=== PATIENT | male | born 2000 | race Caucasian/White ===

== ENCOUNTER → 2023-09-15 | Outpatient (CLI) | payer OTHER ==
[2023-09-15 14:09] LABS: BASO # 0.1 10^3/uL (0.0-0.2); BASO % 0.6 % (0.0-1.0); EOS # 0.2 10^3/uL (0.0-0.5); EOS % 1.8 % (0.0-3.0); HEMATOCRIT 36.8 % (42.0-52.0); HEMOGLOBIN 11.4 g/dl (13.5-17.5); LYMPH % 18.9 % (24.0-44.0); MEAN CORPUSCULAR HEMOGLOBIN 26.1 pg (27.0-33.0); MEAN CORPUSCULAR VOLUME 84.2 fl (80.0-96.0); MONO # 0.9 10^3/uL (0.0-0.8); MONO % 8.3 % (2.0-8.0); NEUTROPHILS # 7.6 10^3/uL (1.5-8.5); NEUTROPHILS % 70.1 % (36.0-66.0); PLATELET COUNT, AUTOMATED 381 10^3/uL (150-450); RED BLOOD COUNT 4.37 10^6/uL (4.30-6.10); WHITE BLOOD COUNT 10.8 10^3/uL (4.0-10.0)
[2023-09-15 14:20] LABS: ERYTHROCYTE SEDIMENTATION RATE 24 mm/hr (0-15)
[2023-09-15 14:33] LABS: C REACTIVE PROTEIN QUANTITATIV < 0.40 MG/DL (<1.0)
[2023-09-15 14:34] LABS: IMMUNOGLOBULIN A 192.8 MG/DL (40-350)
[2023-09-15 14:35] LABS: ALKALINE PHOSPHATASE 86 U/L (46-116); ALT/SGPT 16 U/L (7.0-40); AST/SGOT 15 U/L (<34); BILIRUBIN,TOTAL 0.2 MG/DL (0.3-1.2); BLOOD UREA NITROGEN 21 MG/DL (9-23); CALCIUM LEVEL 9.2 MG/DL (8.5-10.1); CARBON DIOXIDE LEVEL 26 MMOL/L (20-31); CHLORIDE LEVEL 104 MMOL/L (98-107); CREATININE FOR GFR 1.24 MG/DL (0.70-1.30); GLUCOSE, FASTING 89 MG/DL (60-100); POTASSIUM SERUM 4.3 MMOL/L (3.5-5.1); SODIUM LEVEL 138 MMOL/L (136-145); TOTAL PROTEIN 7.2 G/DL (5.7-8.2)
[2023-09-15 14:36] LABS: FREE T4 1.12 NG/DL (0.83-1.43); THYROID STIMULATING HORMONE 3.122 uIU/ML (0.48-4.17)
== END ==
LOC: M LAB 13:18
DX: K62.5 Hemorrhage of anus and rectum (principal); R19.7 Diarrhea, unspecified

== ENCOUNTER 2024-06-09 19:02 | Emergency (ER) | payer OTHER ==
[~2024-06-09] VITALS: Ht 162.6 cm; Wt 68.0 kg
[2024-06-09 19:36] LABS: HEMATOCRIT 29.8 % (42.0-52.0); HEMOGLOBIN 8.6 g/dl (13.5-17.5); MEAN CORPUSCULAR HEMOGLOBIN 22.5 pg (27.0-33.0); MEAN CORPUSCULAR HGB CONC 28.9 g/dl (32.0-36.5); PLATELET COUNT, AUTOMATED 467 10^3/uL (150-450); RED BLOOD COUNT 3.82 10^6/uL (4.30-6.10); WHITE BLOOD COUNT 11.1 10^3/uL (4.0-10.0)
[2024-06-09] MEDS: PANTOPRAZOLE 40MG VIAL IV ONE (19:58)
[2024-06-09] MEDS: NS 1,000 ML IV STA (19:59)
[2024-06-09 20:02] LABS: ETHYL ALCOHOL (ETHANOL) < 0.003 % (0.000-0.010); LIPASE 20 U/L (12-53)
[2024-06-09 20:04] LABS: ALBUMIN 3.3 G/DL (3.2-5.2); ALKALINE PHOSPHATASE 77 U/L (46-116); ALT/SGPT 11 U/L (7.0-40); AST/SGOT < 8 U/L (<34); BILIRUBIN,DIRECT 0.1 MG/DL (<0.4); BILIRUBIN,TOTAL 0.4 MG/DL (0.3-1.2); BLOOD UREA NITROGEN 12 MG/DL (9-23); CARBON DIOXIDE LEVEL 27 MMOL/L (20-31); CHLORIDE LEVEL 104 MMOL/L (98-107); CREATININE FOR GFR 1.44 MG/DL (0.70-1.30); GLOMERULAR FILTRATION RATE > 60.0 (>60); GLUCOSE, FASTING 99 MG/DL (60-100); SODIUM LEVEL 136 MMOL/L (136-145); TOTAL PROTEIN 6.4 G/DL (5.7-8.2)
[2024-06-09] MEDS ORDERED: ISOVUE-370 76% 100ML VIAL As Ordered ONE (20:08)
[2024-06-09 20:15] LABS: INR 1.26; PROTHROMBIN TIME 15.4 SECONDS (12.5-14.5)
[2024-06-09 20:21] LABS: BASOPHILS 3 % (0-1); EOSINOPHILS 1 % (0-3); LYMPHOCYTES 16 % (16-44); MONOCYTES 20 % (0-5); NEUTROPHILS 46 % (28-66)
[2024-06-09 20:22] LABS: PLATELET ESTIMATE INCREASED (NORMAL); POLYCHROMASIA 1+
[2024-06-09 20:23] LABS: HYPOCHROMASIA 2+; MICROCYTOSIS 1+
[2024-06-09 20:24] LABS: TEAR DROP CELLS 2+
[2024-06-09] MEDS: methylPREDNISolone 125MG 2ML VIAL IV ONE (21:46)
[2024-06-09] MEDS: ONDANSETRON 4MG 2ML VIAL IV ONE (22:02)
[2024-06-09] MEDS: MORPHINE 4 MG/ML 1ML VIAL IV ONE (22:03)
[2024-06-09 23:17] VITALS: O2SAT 98
[2024-06-09 23:30] VITALS: BP 106/52; TEMP 100.3
[2024-06-09] MEDS: ACETAMINOPHEN 500 MG TAB PO ONE (23:44)
== END 2024-06-09 23:55 | disposition short-term general hospital (02) ==
LOC: M ED 19:02
DX: K51.90 Ulcerative colitis, unspecified, without complications (principal); F17.210 Nicotine dependence, cigarettes, uncomplicated; Z88.1 Allergy status to other antibiotic agents
CPT/HCPCS: 74174; 80048; 80076; 82077; 83690; 85025; 85610; 96361; 96374; 96375; 99285; J2405; J2470; J2919; Q9967

== ENCOUNTER 2024-07-29 10:11 | Outpatient (CLI) | payer OTHER ==
[~2024-07-29] VITALS: Ht 162.6 cm; Wt 65.9 kg
[2024-07-29] VITALS (7 sets, daily range): BP systolic 107–121; BP diastolic 53–59; O2SAT 98–100
[~2024-07-29 10:11] MED LIST: NS 1,000 ML IV SCH
[2024-07-29] MEDS: inFLIXimab INJECTION 300 MG in NS 220 ML IV ONE (10:55)
== END 2024-07-29 13:20 ==
LOC: M INFU 10:11
PROVIDERS: ATTEND Student in an Organized Health Care Education/Training Program
DX: K51.911 Ulcerative colitis, unspecified with rectal bleeding (principal); Z88.1 Allergy status to other antibiotic agents
CPT/HCPCS: 96413; 96415; J1745

== ENCOUNTER 2024-08-12 10:30 | Outpatient (CLI) | payer OTHER ==
[~2024-08-12] VITALS: Ht 162.6 cm; Wt 65.9 kg
[2024-08-12 11:15] VITALS: BP 117/60; O2SAT 100
[2024-08-12] MEDS: inFLIXimab INJECTION 300 MG in NS 220 ML IV ONE (11:16)
[2024-08-12 11:45] VITALS: BP 129/58; O2SAT 97
[2024-08-12 12:15] VITALS: BP 120/56; O2SAT 100
[2024-08-12 13:10] VITALS: BP 129/59; O2SAT 100
== END 2024-08-12 13:20 ==
LOC: M INFU 10:30
PROVIDERS: ATTEND Student in an Organized Health Care Education/Training Program
DX: K51.911 Ulcerative colitis, unspecified with rectal bleeding (principal); Z88.1 Allergy status to other antibiotic agents
CPT/HCPCS: 96413; 96415; J1745

== ENCOUNTER 2024-09-09 10:25 | Outpatient (CLI) | payer OTHER ==
[~2024-09-09] VITALS: Ht 162.6 cm; Wt 68.0 kg
[2024-09-09 10:30] VITALS: BP 135/63; O2SAT 100
[2024-09-09] MEDS ORDERED: NS 1,000 ML IV SCH (10:30)
[2024-09-09] MEDS: inFLIXimab INJECTION 300 MG in NS 220 ML IV ONE (11:12)
[2024-09-09 11:30] VITALS: BP 122/56; O2SAT 100
[2024-09-09 12:00] VITALS: BP 120/58; O2SAT 100
[2024-09-09 13:20] VITALS: BP 130/58; O2SAT 100
== END 2024-09-09 12:50 ==
LOC: M INFU 10:25
PROVIDERS: ATTEND Student in an Organized Health Care Education/Training Program
DX: K51.911 Ulcerative colitis, unspecified with rectal bleeding (principal); Z88.1 Allergy status to other antibiotic agents
CPT/HCPCS: 96413; 96415; J1745

== ENCOUNTER 2024-11-04 10:30 | Outpatient (CLI) | payer OTHER ==
[~2024-11-04] VITALS: Ht 162.6 cm; Wt 68.2 kg
[2024-11-04] MEDS: NS (Normal Saline) 0.9% 1,000 ML IV SCH (10:30)
[2024-11-04 10:45] VITALS: BP 138/53; O2SAT 100
[2024-11-04] MEDS: inFLIXimab INJECTION 300 MG in NS 220 ML IV ONE (11:26)
[2024-11-04] MEDS: ACETAMINOPHEN 650MG PO PRIOR TO INFUSION PO ONE (11:30)
[2024-11-04] MEDS: diphenhydrAMINE 25MG PO PRIOR TO INFUSION PO ONE (11:30)
[2024-11-04 13:40] VITALS: BP 130/66; O2SAT 100
== END 2024-11-04 13:40 ==
LOC: M INFU 10:30
PROVIDERS: ATTEND Student in an Organized Health Care Education/Training Program
DX: K51.911 Ulcerative colitis, unspecified with rectal bleeding (principal); Z88.1 Allergy status to other antibiotic agents
CPT/HCPCS: 96413; 96415; J1745

== ENCOUNTER 2024-12-14 11:19 | Outpatient (CLI) | payer OTHER ==
[~2024-12-14] VITALS: Ht 162.6 cm; Wt 70.5 kg
[~2024-12-14 11:19] MED LIST changes: +ALBUTEROL SULFATE 2.5MG/0.5ML INH NEB SOLN INH PRN; +EPINEPHrine INJ 1 MG/ML 1ML AMP IM PRN; -NS 1,000 ML IV SCH; +diphenhydrAMINE 50MG/ML VIAL IV PRN; +methylPREDNISolone 125MG 2ML VIAL IV PRN
[2024-12-14 11:30] VITALS: BP 125/68; O2SAT 100
[2024-12-14] MEDS ORDERED: NS (Normal Saline) 0.9% 1,000 ML IV SCH (11:30)
[2024-12-14] MEDS: FERRIC CARBOXYMALTOSE 750 MG (VIAL MATE) IN 100ML NS IV ONE (11:36)
[2024-12-14 12:15] VITALS: BP 132/61; O2SAT 100
== END 2024-12-14 12:20 ==
LOC: M INFU 11:19
PROVIDERS: ATTEND Student in an Organized Health Care Education/Training Program
DX: D50.9 Iron deficiency anemia, unspecified (principal); Z88.1 Allergy status to other antibiotic agents
CPT/HCPCS: 96365; J1439

== ENCOUNTER 2024-12-16 10:24 | Outpatient (CLI) | payer OTHER ==
[~2024-12-16] VITALS: Ht 162.6 cm; Wt 70.5 kg
[2024-12-16 10:28] VITALS: BP 131/58; O2SAT 100
[2024-12-16] MEDS ORDERED: NS (Normal Saline) 0.9% 1,000 ML IV SCH (10:30)
[2024-12-16] MEDS: ACETAMINOPHEN 650MG PO PRIOR TO INFUSION PO ONE (11:01)
[2024-12-16] MEDS: diphenhydrAMINE 25MG PO PRIOR TO INFUSION PO ONE (11:01)
[2024-12-16] MEDS: inFLIXimab INJECTION 500 MG in NS 200 ML IV ONE (11:02)
[2024-12-16 12:05] VITALS: BP 112/56; O2SAT 100
== END 2024-12-16 12:10 ==
LOC: M INFU 10:24
PROVIDERS: ATTEND Student in an Organized Health Care Education/Training Program
DX: K51.911 Ulcerative colitis, unspecified with rectal bleeding (principal); Z88.1 Allergy status to other antibiotic agents
CPT/HCPCS: 96413; J1745

== ENCOUNTER 2024-12-28 11:05 | Outpatient (CLI) | payer OTHER ==
[~2024-12-28] VITALS: Ht 165.1 cm; Wt 70.5 kg
[2024-12-28 11:05] VITALS: BP 130/60; O2SAT 99
[2024-12-28] MEDS: FERRIC CARBOXYMALTOSE INJ 750 MG, VIAL MATE ADAPTER 1 EACH in NS 100 ML IV ONE (11:16)
== END 2024-12-28 11:34 ==
LOC: M INFU 11:05
PROVIDERS: ATTEND Student in an Organized Health Care Education/Training Program
DX: D50.9 Iron deficiency anemia, unspecified (principal)
CPT/HCPCS: 96365; J1439

== ENCOUNTER 2025-01-13 14:00 | Outpatient (CLI) | payer OTHER ==
[~2025-01-13] VITALS: Ht 162.6 cm; Wt 70.5 kg
[2025-01-13 14:00] VITALS: BP 132/81; O2SAT 99
[~2025-01-13 14:00] MED LIST changes: -ALBUTEROL SULFATE 2.5MG/0.5ML INH NEB SOLN INH PRN; -EPINEPHrine INJ 1 MG/ML 1ML AMP IM PRN; +NS (Normal Saline) 0.9% 1,000 ML IV SCH; -diphenhydrAMINE 50MG/ML VIAL IV PRN; -methylPREDNISolone 125MG 2ML VIAL IV PRN
[2025-01-13] MEDS: diphenhydrAMINE 25MG PO PRIOR TO INFUSION PO ONE (14:00)
[2025-01-13] MEDS: ACETAMINOPHEN 650MG PO PRIOR TO INFUSION PO ONE (14:08)
[2025-01-13] MEDS: inFLIXimab INJECTION 500 MG in NS 200 ML IV ONE (14:32)
[2025-01-13 15:30] VITALS: BP 135/63; O2SAT 100
== END 2025-01-13 15:30 ==
LOC: M INFU 14:00
PROVIDERS: ATTEND Student in an Organized Health Care Education/Training Program
DX: K51.911 Ulcerative colitis, unspecified with rectal bleeding (principal); Z88.1 Allergy status to other antibiotic agents
CPT/HCPCS: 96413; J1745

== ENCOUNTER 2025-02-10 14:25 | Outpatient (CLI) | payer OTHER ==
[~2025-02-10] VITALS: Ht 162.6 cm; Wt 72.4 kg
[2025-02-10] MEDS: diphenhydrAMINE 25MG PO PRIOR TO INFUSION PO ONE (14:00)
[2025-02-10] MEDS: ACETAMINOPHEN 650MG PO PRIOR TO INFUSION PO ONE (14:00)
[2025-02-10 14:35] VITALS: BP 138/63; O2SAT 100
[2025-02-10] MEDS: inFLIXimab INJECTION 500 MG in NS 200 ML IV ONE (15:14)
[2025-02-10 15:30] VITALS: BP 119/72; TEMP 97.3; O2SAT 97
== END 2025-02-10 16:20 | disposition home or self-care (01) ==
LOC: M INFU 14:25
PROVIDERS: ATTEND Student in an Organized Health Care Education/Training Program
DX: K51.911 Ulcerative colitis, unspecified with rectal bleeding (principal); Z88.1 Allergy status to other antibiotic agents
CPT/HCPCS: 96413; J1745